=== PATIENT | female | born 1945 | race African-American/Black ===

== ENCOUNTER 2016-12-12 08:37 | Emergency (ER) | payer MEDICARE, MEDICAID ==
[~2016-12-12] VITALS: Ht 167.6 cm; Wt 90.0 kg
[~2016-12-12 08:37] MED LIST: ALBUAER3 INH; AMLO10TA2 PO; ASPI81CH37 CHEW; METO25TA6 PO
[2016-12-12 08:38] VITALS: BP 131/77; PULSE 88; RESP 18; TEMP 98.1; O2SAT 98
--- NOTE | 2016-12-12 09:07 | PD ---
HPI Chief Complaint: Allergic/Adverse Reaction Time Seen by Provider: 09:06 Travel History International Travel<30 days: No Contact w/Intl Traveler<30days: No Traveled to known affect area: No History of Present Illness HPI 71-year-old female came to the emergency room with history of tongue and lip swelling that started this morning. Patient says that last night she woke up in the middle of the night to go to the restroom and felt her tongue burning. She checked her tongue at that time and it was not swollen. Currently the right half of the tongue is more swollen and the bottom lip. No drooling or stridor. She says she had a similar reaction when she was on lisinopril but was taken off it 2 years ago and was started on amlodipine. 2 weeks ago she had some sort of a rash and was put on an antibiotic for 5 days. Patient does not remember the name of the antibiotic. Her daughter is here with her. The daughter noticed a rash around both her armpits yesterday. Patient does not appear to be in any significant respiratory distress currently. Vital signs are currently stable. [facility] Past Medical History Narrative Medical List of her past medical, surgical, social and family history was reviewed from the nursing note. Cancer: Yes (LUNG) Cardiovascular Problems: Yes Diabetes: No Endocrine: No Genitourinary: No Hepatitis: No Hiatal Hernia: No Immune Disorder: No Musculoskeletal: Yes (ARTHRITIS) Neurologic: Yes (HEADACHES) Psychiatric: No Reproductive: No Respiratory: Yes (HX CA) Thyroid Disease: No ?: Not Past Surgical History Abdominal Surgery: No AICD: No Cardiac Surgery: No Ear Surgery: No Endocrine Surgery: No Eye Surgery: No Genitourinary Surgery: No Gynecologic Surgery: Yes (TUBAL LIGATION) Joint Replacement: No Oral Surgery: No Pacemaker: No Thoracic Surgery: No Social History Alcohol Use: No Tobacco Use: No Substance Use: No Allergies-Medications (Allergen,Severity, Reaction): Coded Allergies: Lisinopril (Unverified Allergy, Severe, TONGUE SWELLING, 09/11/16) Comments List of her allergies reviewed from the nursing note. Reported Meds & Prescriptions Reported Meds & Active Scripts Active Benadryl Allergy (Diphenhydramine HCl) 25 Mg Tab 25 Mg PO Q6H PRN 5 Days Prednisone 20 Mg Tab 20 Mg PO BID 5 Days Reported Proair Hfa 8.5 GM Inh (Albuterol Sulfate) 90 Mcg/Act Aer 1 Puff INH Q4H PRN 108 mcg/actuation Metoprolol Succinate ER 24 HR (Metoprolol Succinate) 25 Mg Tab 25 Mg PO DAILY Amlodipine (Amlodipine Besylate) 10 Mg Tab 10 Mg PO DAILY Aspirin Low Dose (Aspirin) 81 Mg Chew 81 Mg CHEW DAILY Narrative Medication List of her home medications reviewed from the nursing note. Review of Systems Except as stated in HPI: all other systems reviewed are Neg Physical Exam Narrative GENERAL: Awake, alert, mild distress SKIN: Warm and dry. HEAD: Atraumatic. Normocephalic. EYES: Pupils equal and round. No scleral icterus. No injection or drainage. ENT: No nasal bleeding or discharge. Mucous membranes pink and moist. Tongue is swollen. The right calf is more swollen than the left. The bottom lip is swollen with angioedema. No drooling NECK: Trachea midline. No JVD. CARDIOVASCULAR: Regular rate and rhythm. No murmur appreciated. RESPIRATORY: No accessory muscle use. Clear to auscultation. Breath sounds equal bilaterally. GASTROINTESTINAL: Abdomen soft, non-tender, nondistended. Hepatic and splenic margins not palpable. MUSCULOSKELETAL: No obvious deformities. No clubbing. No cyanosis. No edema. NEUROLOGICAL: Awake and alert. No obvious cranial nerve deficits. Motor grossly within normal limits. Normal speech. PSYCHIATRIC: Appropriate mood and affect; insight and judgment normal. Data Data Last Documented VS Vital Signs Date Time Temp Pulse Resp B/P Pulse Ox O2 Delivery O2 Flow Rate FiO2 12/12/16 10:15 97 Room Air 12/12/16 08:38 98.1 88 18 131/77 Orders Ecg Monitoring (12/12/16 09:12) Iv Access Insert/Monitor (12/12/16 09:12) Oximetry (12/12/16 09:12) Diphenhydramine Inj (Benadryl Inj) (12/12/16 09:15) Methylprednisolone So Succ Inj (Solumedr (12/12/16 09:15) Sodium Chloride 0.9% Flush (Ns Flush) (12/12/16 09:15) Epinephrine (1:1000) Inj (Adrenalin (1:1 (12/12/16 09:15) MDM Medical Decision Making Medical Screen Exam Complete: Yes Emergency Medical Condition: Yes Medical Record Reviewed: Yes Differential Diagnosis Angioedema, allergic reaction Narrative Course 10:54 AM patient was given IV Solu-Medrol, IV Benadryl and subcutaneous epinephrine when she first came in. I went and reassessed her after one hour of the medications and she says the swelling is slightly better. I'm still observing her and I'll reassess her in a bit. 11:54 AM after 2 reassessments the swelling seems to be slowly going down. I'm comfortable discharging her home at this point. She is comfortable with that plan as well. She has been given instructions to return to the ER if the symptoms worsen. Procedures EKG Prior to Arrival: No Diagnosis Primary Impression: Angioedema Qualified Code: T78.3XXA - Angioedema, initial encounter Referrals: Primary Care Physician 2 days Additional Instructions: Please return to the ER if the condition worsens or any other new concerns. Take the medications as per the prescription direction. Follow-up with your primary care who should refer you to the explosive specialist to find out the exact patient is allergic to. Do not drive while on Benadryl since it will make you groggy. Med/Other Pt SpecificInfo: Prescription(s) given Scripts Diphenhydramine (Benadryl Allergy)25 Mg Tab25 Mg PO Q6H PRN (ALLERGIES) 5 Days Ref 0 Prov:Rossi Ch MD 12/12/16 Prednisone 20 Mg Tab20 Mg PO BID 5 Days Ref 0 Prov:Rossi Ch MD 12/12/16 Disposition: 01 DISCHARGE HOME Condition: Stable Rossi Ch MD Dec 12, 2016 09:07
[2016-12-12] MEDS ORDERED: EPINEPHrine HCL (1:1000) 1 MG/ML VIAL IM ONE (09:15)
[2016-12-12] MEDS ORDERED: SODIUM CHLORIDE 0.9% FLUSH 10 ML FLUSH IV FLUSH PRN (09:15)
[2016-12-12] MEDS ORDERED: diphenhydrAMINE HCL 50 MG/ML VIAL IVP ONE (09:15)
[2016-12-12] MEDS ORDERED: methylPREDNISolone SOD SUCC 125 MG/2 ML VIAL IM ONE (09:15)
[2016-12-12 10:15] VITALS: O2SAT 97
[2016-12-12] MEDS ORDERED: BENA25TA3 PO (11:56)
[2016-12-12] MEDS ORDERED: PRED20 PO (11:56)
== END 2016-12-12 14:05 | disposition home or self-care (01) ==
LOC: NEPC 08:37
DX: T78.3XXA Angioneurotic edema, initial encounter (principal)
CPT/HCPCS: 96372; 96374; 96375; 99283; J0171; J1200; J2930

== ENCOUNTER 2017-04-22 07:49 | Day surgery (SDC) | payer MEDICARE, MEDICAID ==
[~2017-04-22] VITALS: Ht 170.2 cm; Wt 92.7 kg
[~2017-04-22 07:49] MED LIST changes: +BENA25TA3 PO; +PRED20 PO
[2017-04-22] MEDS ORDERED: SODIUM CHLORIDE 0.9% 1000 ML IV SCH (08:00)
[2017-04-22 08:16] VITALS: BP 141/92; PULSE 95; RESP 18; TEMP 97.5; O2SAT 94
[2017-04-22] MEDS ORDERED: ceFAZolin 2 GM PREMIX 50 ML - implanted port removal IV SCH (08:30)
[2017-04-22] MEDS ORDERED: FURO1TAB62 PO (08:31)
[2017-04-22] MEDS ORDERED: BENA25CA4 IV (08:31)
[2017-04-22] MEDS ORDERED: RESP: ALBUTEROL 2.5 MG/3 ML NEB (SCH) ONE (08:42)
[2017-04-22 09:07] LABS: APTT (PATIENT) 24.8 SEC (24.3-30.1); PROTHROMBIN TIME - PATIENT 10.7 SEC (9.8-11.6)
[2017-04-22] MEDS ORDERED: MIDAZOLAM HCL 2 MG/2 ML VIAL ONE (09:24)
[2017-04-22] MEDS ORDERED: fentaNYL CITRATE 250 MCG/5 ML AMP ONE (09:24)
[2017-04-22] MEDS ORDERED: LIDOCAINE 1%/EPINEPHrine 1:100,000 SOLN 20 ML VIAL ONE (09:40)
[2017-04-22 10:20] VITALS: BP 95/64; PULSE 96; RESP 18; O2SAT 95
[2017-04-22 10:35] VITALS: BP 115/75; PULSE 99; RESP 18; O2SAT 95
--- NOTE | 2017-04-22 10:50 | RADRPT ---
EXAM DATE/TIME: 04/22/2017 08:24 [place] COMPARISON: No previous studies available for comparison. INDICATIONS : Patient presents with a history of lung cancer in need of port removal that is no longer needed due t o completed therapy. MEDICAL HISTORY : Right lung cancer hx HTN SURGICAL HISTORY : Lung biopsy Bronchoscopy Tubal ligation Port Colonoscopy ENCOUNTER: Initial ACUITY: 4-6 months PAIN SCORE: 0/10 LOCATION: N/A SEDATION TIME: 10 minutes 1.) 1 mg midazolam (Versed) IV 2.) 100 mcg fentanyl (Sublimaze) IV Prophylactic antibiotics were administered with appropriate pre-procedure timing. Vancomycin within 2 hrs of procedure, Ancef (or alternative) within 1 hr of procedure. PROCEDURE : 1. Removal of [id number]. 2. Conscious sedation with continuous EKG and oximetry monitoring. The risk, benefits and potential complications of [id number] removal were discussed. Written conse nt was obtained. The patient was placed supine. The chest wall was prepped in sterile fashion. Full sterile techniqu e was used, including cap, mask, sterile gloves and gown, and a large sterile sheet. Hand hygiene an d 2% chlorhexidine and/or Betadine/alcohol prep was utilized per protocol for cutaneous antisepsis. The skin and subcutaneous tissues were infiltrated with local anesthetic solution. A small incision w as made, the subcutaneous pocket was opened. The port was dissected from the subcutaneous tissues and easily removed in one piece. The pocket incision was closed with subcuticular Vicryl suture. Steri -Strips were applied. Conscious sedation was performed with the prescribed dosages and duration as above in the presence of an independent trained radiology nurse to assist in the monitoring of the patient. EKG and oximetry remained stable throughout the procedure. The patient tolerated the procedure well and there were no complications. The patient was sent to post anesthesia recovery in stable condition. CONCLUSION: Uncomplicated port removal as above. Lobo Vuong MD on April 22, 2017 at 10:48 Board Certified Radiologist. This report was verified electronically.
[2017-04-22 11:05] VITALS: BP 112/67; PULSE 95; RESP 18; O2SAT 96
[2017-04-22 11:35] VITALS: BP 111/84; PULSE 94; RESP 18; O2SAT 96
[2017-04-22 12:05] VITALS: BP 125/62; PULSE 100; RESP 18; O2SAT 97
--- NOTE | 2017-04-22 12:59 | PD.RAD ---
Post Procedure Progress Note Pre Procedure Diagnosis: (1) Lung cancer Post Procedure Diagnosis: (1) Lung cancer Procedure Date: Apr 22, 2017 Supervising Radiologist: Lobo Vuong Proceduralist/Assist: Doc Dodson RT(R), RT Myke(R)(CV) Anesthesia: Local, Analgesia, Conscious Sedation Plan of Activity Patient to Unit: ROPU Patient Condition: Good See PACS Report for procedural detail/treatment Central Venous Access Device Procedure 1 Right Internal Jugular Infusaport Removal single lumen Dutch: 8 Lobo Vuong MD Apr 22, 2017 12:59
== END 2017-04-22 12:22 | disposition home or self-care (01) ==
LOC: HROP 07:49 → HRIP 07:52 → HROP 12:22
PROVIDERS: ATTEND Internal Medicine Hematology & Oncology
DX: C34.90 Malignant neoplasm of unspecified part of unspecified bronchus or lung (principal); I10 Essential (primary) hypertension; Z01.818 Encounter for other preprocedural examination
CPT/HCPCS: 36590; 85610; 85730; 99152; J0690; J2250; J3010; J7030; J7613